=== PATIENT | female | born 1985 | race Caucasian/White ===

== ENCOUNTER 2016-07-12 10:43 | Emergency (ER) | payer OTHER ==
--- NOTE | 2016-07-12 11:24 | ED CLINICAL REPORT ---
Clinical Report - Physicians/Mid Levels [facility] [address] [place] [address] 07/12/2016 10:43 Patient: KEYANA ZELAYA Time Seen: 11:18 Jul 12 2016. Arrived- By private vehicle. Historian- patient. HISTORY OF PRESENT ILLNESS Chief Complaint: NECK PAIN. It is described as being moderate in degree and in the area of the cervical spine and right side of the cervical spine. The quality is noted to be sharp, aching and "pain". Modifying factors- worsened by rotation of the head. Relieved by remaining still. 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 No brusing, redness or swelling. No injury Pt limited range of motion in neck). and it is still present. No bladder dysfunction, bowel dysfunction, sensory loss or motor loss. No other injury. Similar symptoms previously: None. Recent medical care: Not recently seen/assessed. REVIEW OF SYSTEMS No fever, chills, eye discomfort, headache or sore throat. No cough, difficulty breathing, chest pain, skin rash or abdominal pain. No nausea, vomiting, diarrhea, difficulty with urination or urinary frequency. All systems otherwise negative, except as recorded above. PAST HISTORY Dental Caries. Dental Abscess. Bronchitis. Dilatation & Curettage. Tubal Ligation. Medications: None. Allergies: No Known Drug Allergy. SOCIAL HISTORY Never smoker. No alcohol use or drug use. ADDITIONAL NOTES The nursing notes have been reviewed. PHYSICAL EXAM Vital Signs: 07/12/2016 11:01 BP: 146/94. HR: 67. RR: 18. O2 saturation: 99%. Temp: 98.7 F. Appearance: Alert. Patient in mild distress. HEENT: Normal external inspection. Eyes: Pupils equal, round and reactive to light. ENT: Ears normal. Pharynx normal. Neck: Normal inspection. Pain in the neck upon movement. Moderate soft tissue tenderness in the right upper and mid neck area (right sided paracervical soft tissue.). No meningeal signs. CVS: Normal heart rate and rhythm. Heart sounds normal. Pulses normal. Respiratory: No respiratory distress. Breath sounds normal. Abdomen: Nontender. Back: Normal inspection. No tenderness. Skin: Skin warm. Normal skin color. No rash. Extremities: Extremities exhibit normal ROM. Extremities nontender. Neuro: Oriented X 3. Mood/affect normal. No motor deficit. No sensory deficit. Reflexes normal. PROGRESS AND PROCEDURES Course of Care: Toradol 60mg IM Soft collar Patient is stable. Patient/family counseled. Disposition: Discharged. Condition: stable. CLINICAL IMPRESSION Acute cervical strain. INSTRUCTIONS Wear soft neck collar until better (at night). Apply moist heat for 15-20 minutes three times a day for five days until better. Limit lifting. No strenuous activity. Do not work today, for one day until better. Warnings: GENERAL WARNINGS: Return or contact your physician immediately if your condition worsens or changes unexpectedly, if not improving as expected, or if other problems arise. Prescription Medications: Ibuprofen 600mg tablets: take 1 tablet orally every 8 hours as needed for pain. Dispense thirty (30). No refills. Soma 350 mg: Take 1 orally every 6 hours as needed for muscle spasm. Dispense twenty (20). No refills. Substitution is permissible. Understanding of the discharge instructions verbalized by patient. Follow-up with: [facility], , , [address], , [place], [id number] Follow up in one week. Call for an appointment. (Electronically signed by Oni Rojas MD 07/13/2016 12:54)
--- NOTE | 2016-07-12 11:24 | ED CLINICAL REPORT ---
Clinical Report - Physicians/Mid Levels [facility] [address] [place] [address] 07/12/2016 10:43 Patient: KEYANA ZELAYA Time Seen: 11:18 Jul 12 2016. Arrived- By private vehicle. Historian- patient. HISTORY OF PRESENT ILLNESS Chief Complaint: NECK PAIN. It is described as being moderate in degree and in the area of the cervical spine and right side of the cervical spine. The quality is noted to be sharp, aching and "pain". Modifying factors- worsened by rotation of the head. Relieved by remaining still. 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 No brusing, redness or swelling. No injury Pt limited range of motion in neck). and it is still present. No bladder dysfunction, bowel dysfunction, sensory loss or motor loss. No other injury. Similar symptoms previously: None. Recent medical care: Not recently seen/assessed. REVIEW OF SYSTEMS No fever, chills, eye discomfort, headache or sore throat. No cough, difficulty breathing, chest pain, skin rash or abdominal pain. No nausea, vomiting, diarrhea, difficulty with urination or urinary frequency. All systems otherwise negative, except as recorded above. PAST HISTORY Dental Caries. Dental Abscess. Bronchitis. Dilatation & Curettage. Tubal Ligation. Medications: None. Allergies: No Known Drug Allergy. SOCIAL HISTORY Never smoker. No alcohol use or drug use. ADDITIONAL NOTES The nursing notes have been reviewed. PHYSICAL EXAM Vital Signs: 07/12/2016 11:01 BP: 146/94. HR: 67. RR: 18. O2 saturation: 99%. Temp: 98.7 F. Appearance: Alert. Patient in mild distress. HEENT: Normal external inspection. Eyes: Pupils equal, round and reactive to light. ENT: Ears normal. Pharynx normal. Neck: Normal inspection. Pain in the neck upon movement. Moderate soft tissue tenderness in the right upper and mid neck area (right sided paracervical soft tissue.). No meningeal signs. CVS: Normal heart rate and rhythm. Heart sounds normal. Pulses normal. Respiratory: No respiratory distress. Breath sounds normal. Abdomen: Nontender. Back: Normal inspection. No tenderness. Skin: Skin warm. Normal skin color. No rash. Extremities: Extremities exhibit normal ROM. Extremities nontender. Neuro: Oriented X 3. Mood/affect normal. No motor deficit. No sensory deficit. Reflexes normal. PROGRESS AND PROCEDURES Course of Care: Toradol 60mg IM Soft collar Patient is stable. Patient/family counseled. Disposition: Discharged. Condition: stable. CLINICAL IMPRESSION Acute cervical strain. INSTRUCTIONS Wear soft neck collar until better (at night). Apply moist heat for 15-20 minutes three times a day for five days until better. Limit lifting. No strenuous activity. Do not work today, for one day until better. Warnings: GENERAL WARNINGS: Return or contact your physician immediately if your condition worsens or changes unexpectedly, if not improving as expected, or if other problems arise. Prescription Medications: Ibuprofen 600mg tablets: take 1 tablet orally every 8 hours as needed for pain. Dispense thirty (30). No refills. Soma 350 mg: Take 1 orally every 6 hours as needed for muscle spasm. Dispense twenty (20). No refills. Substitution is permissible. Understanding of the discharge instructions verbalized by patient. Follow-up with: [facility], , , [address], , [place], [address] Follow up in one week. Call for an appointment. (Electronically signed by Oni Rojas MD 07/13/2016 12:54)
--- NOTE | 2016-07-12 11:24 | ED NURSING NOTES ---
Clinical Report - Nurses [facility] [address] [place] [address] 07/12/2016 10:43 Patient: KEYANA ZELAYA TRIAGE Triage time 11:Jul 12 2016. Acuity: LEVEL 3. Chief Complaint: (neck pain). ( Last period beginning of month). --11:04 Montana Mishra R.N. 11:01 07/12/16. BP: 146/94. HR: 67. RR: 18. O2 saturation: 99%. Temp: 98.7 F. Pain level now 12/11. --11:04 Montana Mishra R.N. Weight: 90.7 kg stated. Height/Length: 69 inches Per Patient. BMI: 29.5. --11:03 Montana Mishra R.N. Medications None. --11:03 Montana Mishra R.N. Allergies No Known Drug Allergy. --11:03 Montana Mishra R.N. History Arrived by private vehicle. Historian: patient. ( Pt reports pain in her neck for one week, not improving or getting worse. No brusing, redness or swelling. No injury Pt limited range of motion in neck). Onset. (1 weeks). 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 SOCIAL HX: Smoker- current status unknown (cigarette). Never smoker. No alcohol use or drug use. --11:04 Montana Mishra R.N. PROBLEMS: Dental Caries. Dental Abscess. Bronchitis. --11:03 Montana Mishra R.N. ADDITIONAL SURGERIES: Dilatation & Curettage. Tubal Ligation []. --11:03 Montana Mishra R.N. Interventions ID band on patient. To treatment room. --11:04 Montana Mishra R.N. PHYSICAL ASSESSMENT GENERAL / NEURO / PSYCH: Alert. Oriented X 4. Appears in no acute distress. HEENT: Pupils equal, round and reactive to light. No facial asymmetry noted. ( Pain in neck to palpation). RESPIRATORY: Respirations not labored. Chest nontender. Breath sounds within normal limits. CVS: Capillary refill less than 2 seconds. Pulses within normal limits. GI / : Abdomen nontender. SKIN: Skin is warm and dry. --11:05 Montana Mishra R.N. NURSING PROGRESS NOTES Pulse oximeter placed on patient. Patient gowned. Call light placed in reach. Side rails up x 1. Bed placed in lowest position. Brakes of bed on. --11:06 Montana Mishra R.N. 11:40 07/12/2016 Toradol (Ketorolac Tromethamine) IM 60 mg given. Given in the right anterior lateral thigh. Allergies verified and confirmed 5 rights. --11:40 Montana Mishra R.N. DISPOSITION / DISCHARGE Departure time: 11:43 Jul 12 2016. Condition at departure: unchanged. ( soft collar applied, cms intact t/o pt ambulated on discharge, pt verbalized understanding of discharge instructions and follow up care as well as medication admin). --11:44 Montana Mishra R.N. 11:42 07/12/16. BP: 158/89. HR: 84. RR: 18. O2 saturation: 96%. Temp: 98.5 F. Pain level now 12/11. --11:44 Montana Mishra R.N. Locked/Released at 07/12/2016 14:17 by Montana Mishra R.N.
--- NOTE | 2016-07-12 11:24 | ED NURSING NOTES ---
Clinical Report - Nurses [facility] [address] [place] [address] 07/12/2016 10:43 Patient: KEYANA ZELAYA TRIAGE Triage time 11:Jul 12 2016. Acuity: LEVEL 3. Chief Complaint: (neck pain). ( Last period beginning of month). --11:04 Montana Mishra R.N. 11:01 07/12/16. BP: 146/94. HR: 67. RR: 18. O2 saturation: 99%. Temp: 98.7 F. Pain level now 12/11. --11:04 Montana Mishra R.N. Weight: 90.7 kg stated. Height/Length: 69 inches Per Patient. BMI: 29.5. --11:03 Montana Mishra R.N. Medications None. --11:03 Montana Mishra R.N. Allergies No Known Drug Allergy. --11:03 Montana Mishra R.N. History Arrived by private vehicle. Historian: patient. ( Pt reports pain in her neck for one week, not improving or getting worse. No brusing, redness or swelling. No injury Pt limited range of motion in neck). Onset. (1 weeks). 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 SOCIAL HX: Smoker- current status unknown (cigarette). Never smoker. No alcohol use or drug use. --11:04 Montana Mishra R.N. PROBLEMS: Dental Caries. Dental Abscess. Bronchitis. --11:03 Montana Mishra R.N. ADDITIONAL SURGERIES: Dilatation & Curettage. Tubal Ligation []. --11:03 Montana Mishra R.N. Interventions ID band on patient. To treatment room. --11:04 Montana Mishra R.N. PHYSICAL ASSESSMENT GENERAL / NEURO / PSYCH: Alert. Oriented X 4. Appears in no acute distress. HEENT: Pupils equal, round and reactive to light. No facial asymmetry noted. ( Pain in neck to palpation). RESPIRATORY: Respirations not labored. Chest nontender. Breath sounds within normal limits. CVS: Capillary refill less than 2 seconds. Pulses within normal limits. GI / : Abdomen nontender. SKIN: Skin is warm and dry. --11:05 Montana Mishra R.N. NURSING PROGRESS NOTES Pulse oximeter placed on patient. Patient gowned. Call light placed in reach. Side rails up x 1. Bed placed in lowest position. Brakes of bed on. --11:06 Montana Mishra R.N. 11:40 07/12/2016 Toradol (Ketorolac Tromethamine) IM 60 mg given. Given in the right anterior lateral thigh. Allergies verified and confirmed 5 rights. --11:40 Montana Mishra R.N. DISPOSITION / DISCHARGE Departure time: 11:43 Jul 12 2016. Condition at departure: unchanged. ( soft collar applied, cms intact t/o pt ambulated on discharge, pt verbalized understanding of discharge instructions and follow up care as well as medication admin). --11:44 Montana Mishra R.N. 11:42 07/12/16. BP: 158/89. HR: 84. RR: 18. O2 saturation: 96%. Temp: 98.5 F. Pain level now 12/11. --11:44 Montana Mishra R.N. Locked/Released at 07/12/2016 14:17 by Montana Mishra R.N.
--- NOTE | 2016-07-13 12:54 | ED MAR SUMMARY ---
..... Medication Administration Record [facility] [address] [place] [address] Patient: KEYANA ZELAYA Visit ID: [id number] 30y, F Weight: 90.7 kg Height/Length: 69 in BMI: 29.5 ALLERGIES: No Known Drug Allergy Given 11:40 07/12/2016 Montana Mishra RNusratNNusrat Medication Administered: TORADOL [IM] (KETOROLAC TROMETHAMINE), Dose: 60 mg IM. Medication Ordered: Toradol IM 60 mg (NOW).
--- NOTE | 2016-07-13 12:54 | ED MED RECONCILIATION SUMMARY ---
Patient: KEYANA ZELAYA Medication Reconciliation Report [facility] VisitID: [id number] [place] [place] [address] 30y, F Registration Date/Time: 07/12/2016 Weight: 90.7 kg Height/Length: 69 in. BMI: 29.5 ALLERGIES: No Known Drug Allergy The patient's Home Medications are listed below: NONE. The source(s) of the original Home Medication information: Not obtained. The following Medications were given to the patient in the Emergency Department: Toradol [IM] IM 60 mg, administered: 07/12/2016 11:40:00 AM The following Medications were prescribed to the patient: Ibuprofen 600mg tablets: take 1 tablet orally every 8 hours as needed for pain. Dispense thirty (30). No refills. -- Oni Rojas MD Soma 350 mg: Take 1 orally every 6 hours as needed for muscle spasm. Dispense twenty (20). No refills. Substitution is permissible. -- Oni Rojas MD
--- NOTE | 2016-07-13 12:54 | ED ORDER SUMMARY ---
..... Patient: KEYANA ZELAYA OrderSheet [facility] VisitID: [id number] [place] [place] [address] 30y, F Registration Date/Time: 07/12/2016 ORDER SHEET Weight: 90.7 kg (stated) Allergies: No Known Drug Allergy GENERAL ORDERS: Soft Collar (11:33 07/12/2016 Karmen OROZCO) (11:42 DBeyer R.N.) MEDICATION ORDERS: Toradol IM 60 mg (NOW) (11:33 07/12/2016 Karmen OROZCO) (11:40 DBeyadrianna R.N.) IV FLUIDS: ORDER SHEET NOTES: [Electronically signed by Montana Mishra R.N. (14:17 07/12/2016)] [Electronically signed by Oni Rojas MD (12:54 07/13/2016)] [Electronically locked/signed by Montana Mishra R.N. (14:17 07/12/2016)]
--- NOTE | 2016-07-13 12:54 | ED DISCHARGE INSTRUCTIONS ---
Patient: KEYANA ZELAYA General Instructions [facility] VisitID: [id number] [address] [place] [address] 30y, F Registration Date/Time: 07/12/2016 Acute cervical strain. INSTRUCTIONS Wear soft neck collar until better (at night). Apply moist heat for 15-20 minutes three times a day for five days until better. Limit lifting. No strenuous activity. Do not work today, for one day until better. Warnings: GENERAL WARNINGS: Return or contact your physician immediately if your condition worsens or changes unexpectedly, if not improving as expected, or if other problems arise. Prescription Medications: Ibuprofen 600mg tablets: take 1 tablet orally every 8 hours as needed for pain. Dispense thirty (30). No refills. Soma 350 mg: Take 1 orally every 6 hours as needed for muscle spasm. Dispense twenty (20). No refills. Substitution is permissible. Understanding of the discharge instructions verbalized by patient. Follow-up with: [facility], , , [address], , [place], [address] Follow up in one week. Call for an appointment. ADDITIONAL INFORMATION Neck Sprain Or Strain A sudden force that causes turning or bending of the neck (such as in a car accident) can stretch or tear muscles (strain) and ligaments (sprain) and cause neck pain. Sometimes neck pain occurs after a simple awkward movement. In either case, muscle spasm is commonly present and contributes to the pain. Unless you had a forceful physical injury (for example, a car accident or fall), X-rays are usually not ordered for the initial evaluation of neck pain. If pain continues and dose not respond to medical treatment, X-rays and other tests may be performed at a later time. Home care The following guidelines will help you care for your injury at home: You may feel more soreness and spasm the first few days after the injury. Reduce your activity level until symptoms begin to improve. When lying down, use a comfortable pillow that supports the head and keeps the spine in a neutral position. The position of the head should not be tilted forward or backward. Use ice packs (ice in a plastic bag, wrapped in a towel) to treat acute pain. Apply for 20 minutes every 24 hours during the first two days. Then, begin local heat (hot shower, hot bath or heating pad) andmassageto reduce muscle spasm. Some patients feel best alternating hot and cold treatments, or just staying with one method only. Do what feels the best to you and gives the most relief. You may use acetaminophen or ibuprofen to control pain, unless another pain medicine was prescribed.If you have chronic liver or kidney disease or ever had a stomach ulcer or GI bleeding, talk with your doctor before using these medicines. Follow-up care Follow up with your physician or this facility if your symptoms do not show signs of improvement. Physical therapy may be needed. If you had X-rays today, they didnt show any broken bones, breaks, or fractures. Sometimes fractures dont show up on the first X-ray. Bruises and sprains can sometimes hurt as much as a fracture. These injuries can take time to heal completely. If your symptoms dont improve or they get worse, talk with your doctor. You may need a repeat X-ray. When to seek medical care Get prompt medical attention if any of the following occur: Pain becomes worse or spreads into your arms Weakness or numbness in one or both arms Neck Pain [No Trauma] There are several possible causes of neck pain without injury: You can get a minor ligament sprain or muscle strain from a sudden minor neck movement. Sleeping with your neck in an awkward position can also cause this. Some persons respond to emotional stress by tensing the muscles of their neck, shoulders and upper back. Chronic spasm in these muscles can cause neck pain and sometimes headaches. Gradualwear and tearof the joints in the spine can cause degenerative arthritis.This can be a source of occasional or chronic neck pain. With aging or repeated small injuries to the neck, the spinal disks (the cushions between each spinal bone) may bulge and put pressure on a nearby spinal nerve. This causes tingling, pain or numbness spreading from the neck to the shoulder, arm or hand on one side. Acute neck pain usually gets better in one to two weeks. Neck pain related to disk disease, arthritis in the spinal joints or spinal stenosis (narrowing of the spinal canal) can become chronic and last for months or years. Unless you had a forceful physical injury (for example, a car accident or fall), X-rays are usually not ordered for the initial evaluation of neck pain. If pain continues and does not respond to medical treatment, x-rays and other tests may be performed at a later time. Home Care: Rest and relax the muscles. Use a comfortable pillow that supports the head and keeps the spine in a neutral position. The position of the head should not be tilted forward or backward. A rolled up towel may help for a custom fit. Some persons find relief with heat (hot shower, hot bath or heating pad) and massage, while others prefer cold packs (crushed or cubed ice in a plastic bag, wrapped in a towel) . Try both and use the method that feels best for 20 minutes several times a day. You may use acetaminophen (Tylenol) or ibuprofen (Motrin, Advil) to control pain, unless another medicine was prescribed. [ NOTE : If you have chronic liver or kidney disease or ever had a stomach ulcer or GI bleeding, talk with your doctor before using these medicines.] Follow Up with your physician or this facility if your symptoms do not show signs of improvement after one week. Physical therapy or further tests may be needed. [NOTE: A radiologist will review any X-rays or CT scans that were taken. We will notify you of any new findings that may affect your care.] Get Prompt Medical Attention if any of the following occur: Pain becomes worse or spreads into one or both arms Weakness or numbness in one or both arms Increasing headache Neck swelling, difficulty or painful swallowing Fever of 100.4F (38C) or higher, or as directed by your healthcare provider Cervical Collar (Child) Children under 8 years of age often have larger heads in relation to their bodies. Their necks are short, and the neck muscles are weak. Sometimes the neck becomes sprained from injuries due to car crashes, contact sports, diving, or other types of trauma. A cervical collar is used to support the neck and allow the injury to heal. The collars may be used for days, weeks, or months, depending on the severity of the injury. Cervical collars wrap around the neck and firmly support the area. The collars are usually rigid or semi-rigid. They are covered with a soft, removable, washable cloth. The collars should be high cut and support the head upright. However, the chin should be comfortably placed and not forced upward. The chin should also not drop down into the collar. The child should be comfortable when wearing a collar. The cervical collar should not interfere with breathing and eating. Home Care: General Care: Ensure that the cervical collar is a good fit. Your child should feel supported and comfortable at all times. Encourage your child to wear the collar as recommended by the doctor. Check your nataliya skin regularly for any irritation. If your child sweats under the collar, a cotton or silk scarf may help reduce dampness and skin irritation. Wash the cervical collar cover as needed, per manufacturers instructions. Special Notes To Parents: It is sometimes difficult to find a pediatric cervical collar that is an appropriate fit. Talk to the doctor if you need help fitting your child for a cervical collar. Get Prompt Medical Attention if any of the following occur: Continuing neck pain despite use of collar and recommended pain medications Collar doesnt fit well Skin abrasions due to collar Numbness or weakness in any part of the body You have been given the following additional information: Neck Sprain/Strain Neck Pain, No Trauma Cervical Collar (Child) Limit lifting. No strenuous activity. Do not work today, for one day until better. (Electronically signed by Oni Rojas MD 07/13/2016 12:54)
--- NOTE | 2016-07-13 12:54 | ED MED RECONCILIATION SUMMARY ---
Patient: KEYANA ZELAYA Medication Reconciliation Report [facility] VisitID: [id number] [place] [place] [address] 30y, F Registration Date/Time: 07/12/2016 Weight: 90.7 kg Height/Length: 69 in. BMI: 29.5 ALLERGIES: No Known Drug Allergy The patient's Home Medications are listed below: NONE. The source(s) of the original Home Medication information: Not obtained. The following Medications were given to the patient in the Emergency Department: Toradol [IM] IM 60 mg, administered: 07/12/2016 11:40:00 AM The following Medications were prescribed to the patient: Ibuprofen 600mg tablets: take 1 tablet orally every 8 hours as needed for pain. Dispense thirty (30). No refills. -- Oni Rojas MD Soma 350 mg: Take 1 orally every 6 hours as needed for muscle spasm. Dispense twenty (20). No refills. Substitution is permissible. -- Oni Rojas MD
--- NOTE | 2016-07-13 12:54 | ED ORDER SUMMARY ---
..... Patient: KEYANA ZELAYA OrderSheet [facility] VisitID: [id number] [place] [address] 30y, F Registration Date/Time: 07/12/2016 ORDER SHEET Weight: 90.7 kg (stated) Allergies: No Known Drug Allergy GENERAL ORDERS: Soft Collar (11:33 07/12/2016 Karmen OROZCO) (11:42 DBeyer R.N.) MEDICATION ORDERS: Toradol IM 60 mg (NOW) (11:33 07/12/2016 Karmen OROZCO) (11:40 DBeyadrianna R.N.) IV FLUIDS: ORDER SHEET NOTES: [Electronically signed by [place] Mishra R.N. (14:17 07/12/2016)] [Electronically signed by Oni Rojas MD (12:54 07/13/2016)] [Electronically locked/signed by Montana Mishra R.N. (14:17 07/12/2016)]
--- NOTE | 2016-07-13 12:54 | ED MAR SUMMARY ---
..... Medication Administration Record [facility] [address] [place] [address] Patient: KEYANA ZELAYA Visit ID: [id number] 30y, F Weight: 90.7 kg Height/Length: 69 in BMI: 29.5 ALLERGIES: No Known Drug Allergy Given 11:40 07/12/2016 Montana Mishra RNusratNNusrat Medication Administered: TORADOL [IM] (KETOROLAC TROMETHAMINE), Dose: 60 mg IM. Medication Ordered: Toradol IM 60 mg (NOW).
== END 2016-07-12 11:41 | disposition home or self-care (01) ==
LOC: ED SRH 10:43
DX: S16.1XXA Strain of muscle, fascia and tendon at neck level, initial encounter (principal); X58.XXXA Exposure to other specified factors, initial encounter; Y99.9 Unspecified external cause status; Y92.9 Unspecified place or not applicable; Y93.9 Activity, unspecified